=== PATIENT | female | born 1940 | race Caucasian/White ===

== ENCOUNTER 2017-10-09 09:46 | Inpatient (IN) | payer OTHER, MEDICARE ==
[~2017-10-09 09:46] MED LIST: NS 1,000 ML IV ONE
--- NOTE | 2017-10-09 09:46 | EDPHY ---
HPI/HX/ROS/PE/MDM Narrative: CHIEF COMPLAINT: Stroke Alert HPI: This is a 77 y/o female currently undergoing treatment for multiple myeloma who arrives emergently via EMS as a Stroke Alert with acute onset left- sided weakness at 09:00 this morning, 40 minutes prior to arrival. Per EMS, she felt normal upon waking this morning then suddenly developed complete weakness in her left arm and left leg. On EMS arrival she was unable to stand or walk and could not lift her left arm. Symptoms began to improve en route and upon arrival here she feels she is back to normal. Prehospital BGL 146. No anticoagulant use. REVIEW OF SYSTEMS: Aside from elements discussed in the HPI, a comprehensive 10-point review of systems was reviewed and is negative. PMH: Multiple myeloma on chemotherapy SOCIAL HISTORY: Visiting from [place]. Family at bedside. PHYSICAL EXAM: General:Patient is alert, in no acute distress. ENT:Eyes are normal to inspection. ENT inspection normal apart from left lateral tongue abrasion, non-suturable. Neck: Normal inspection. Full range of motion. Respiratory:No respiratory distress. Breath sounds normal bilaterally. Cardiovascular: Regular rate and rhythm. Strong peripheral pulses. Normal cap refill. Abdomen:The abdomen is nontender to palpation. There are no peritoneal signs. Back: Normal to inspection. No tenderness to palpation. Skin: Normal color. No rash. Warm and dry. Extremities: Trace edema, otherwise normal appearance. Full range of motion. Neuro: Oriented x3. Normal motor function. Normal sensory function. ED Course: 40: This is a 77 y/o female with multiple myeloma who presents as a Stroke Alert with a 40-minute history of acute onset left arm and left leg weakness that began at 09:00 this morning. Symptoms have improved en route and upon initial brief assessment here she has no persisting major weakness. She is A& Ox4 and has no aphasia currently. Plan for stroke work up. 940: Patient sent directly to CT. Non-contrast head CT, ISTAT, and EKG ordered. Angio head and neck CTAs ordered. Report from RN who has spoken with patient's family is that the patient may have had a seizure this morning. Family described shaking activity and the patient has been complaining of tongue pain where she believes she bit her tongue during the event this morning. 1023: CT reports communicated to me by Dr. Abdi, radiologist. 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 The 12 lead EKG was interpreted by myself. See hard copy and/or "tracemaster" electronic copy for interpretation. 1027: Reevaluated patient and discussed findings. Her family members are now at bedside. She is complaining of tongue pain and denies any other symptoms. Her family member describes her suddenly "shaking all over" with her "eyes fluttering backwards" while sitting in a chair this morning. She says she remembers the entire event and felt like she couldn't talk or breathe normally for the duration. She denies cardiac disease history or blood clot history, though her family member mentions she's had increased leg swelling for several weeks worse on the left side. Per patient, her multiple myeloma was discovered due to lesions on her skull in 2009. She had a brain MRI at that time at [facility] in [place], [place] that we will attempt to get records from. Her neuro exam is normal. Trace swelling noted in both lower extremity. No birthmarks. Bilateral leg US ordered to rule out DVT. POC Troponin is elevated at 0.72. 1125: Leg US are negative for DVT. Spoke with hospitalist service. Dr. June accepts admission. - Data Points Imaging Results: Imaging Impressions Head CT 10/09/17 09:44 Impression: 1. Chronic changes to the right frontal region with calcification as above described. 2. No acute intracranial hemorrhage or mass or evidence for stroke. Findings and recommendations discussed with Dominic Phillips M.D. at 10:15 a.m. on 10/09/2017. Final report concurs with initial preliminary interpretation. 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 Does this patient have a port wine stain? With calcifications, differential includes Sturge-Carbajal syndrome or vascular malformation not associated with a syndrome. Findings and recommendations discussed with Dominic Phillips M.D. at 10:15 a.m. on 10/09/2017. Final report concurs with initial preliminary interpretation. Neck CTA 10/09/17 09:44 Impression: Normal. Note: All stenoses are calculated using NASCET Criteria. Findings and recommendations discussed with Dominic Phillips MD at 10:15 AM hour, 10/09/2017. Final report concurs with initial preliminary interpretation. Extremity Venous Study 10/09/17 10:32 Impression: Limited evaluation of the peroneal vein. Otherwise, no bilateral LE DVT. Findings and recommendations discussed with Dominic Phillips MD at 1125 hour, 10/09/2017. Imaging: Discussed imaging studies w/ scallop shucker Radiologist, I viewed and interpreted images myself Laboratory Results: Laboratory Results 10/09/17 10:00 10/09/17 10:00 10/09/17 10/09/17 10/09/17 10:44 10:00 10:00 WBC 6.10 10^3/uL 10^3/uL (3.80-9.50) RBC 4.52 10^6/uL 10^6/uL (4.18-5.33) Hgb 14.8 g/dL g/dL (12.6-16.3) Hct 44.6 % % (38.0-47.0) MCV 98.7 fL fL (81.5-99.8) MCH 32.7 pg pg (27.9-34.1) MCHC 33.2 g/dL g/dL (32.4-36.7) RDW 12.6 % % (11.5-15.2) Plt Count 258 10^3/uL 10^3/uL (150-400) MPV 10.9 fL fL (8.7-11.7) Neut % (Auto) 40.0 % % (39.3-74.2) Lymph % (Auto) 46.1 % H % (15.0-45.0) [place] % (Auto) 12.0 % % (4.5-13.0) Eos % (Auto) 1.3 % % (0.6-7.6) Baso % (Auto) 0.3 % % (0.3-1.7) Nucleat RBC Rel Count 0.0 % % (0.0-0.2) Absolute Neuts (auto) 2.44 10^3/uL 10^3/uL (1.70-6.50) Absolute Lymphs (auto) 2.81 10^3/uL 10^3/uL (1.00-3.00) Absolute Monos (auto) 0.73 10^3/uL 10^3/uL (0.30-0.80) Absolute Eos (auto) 0.08 10^3/uL 10^3/uL (0.03-0.40) Absolute Basos (auto) 0.02 10^3/uL 10^3/uL (0.02-0.10) Absolute Nucleated RBC 0.00 10^3/uL 10^3/uL (0-0.01) Immature Gran % 0.3 % % (0.0-1.1) Immature Gran # 0.02 10^3/uL 10^3/uL (0.00-0.10) PT INR APTT D-Dimer Sodium 140 mEq/L mEq/L (135-145) Potassium 3.7 mEq/L mEq/L (3.3-5.0) Chloride 107 mEq/L mEq/L (97-110) Carbon Dioxide 17 mEq/l L mEq/l (22-31) Anion Gap 16 mEq/L mEq/L (8-16) BUN 17 mg/dL mg/dL (7-23) Creatinine 0.8 mg/dL mg/dL (0.6-1.0) POC Creatinine Estimated GFR > 60 Glucose 132 mg/dL H mg/dL (70-100) Calcium 9.0 mg/dL mg/dL (8.5-10.4) POC Troponin I 0.72 ng/mL H ng/mL (0.00-0.08) Troponin I < 0.012 ng/mL ng/mL (0.000-0.034) NT-Pro-B Natriuret Pep 180 pg/mL pg/mL (0-450) 10/09/17 10/09/17 10/09/17 10:00 10:00 09:54 WBC RBC Hgb Hct MCV MCH MCHC RDW Plt Count MPV Neut % (Auto) Lymph % (Auto) [place] % (Auto) Eos % (Auto) Baso % (Auto) Nucleat RBC Rel Count Absolute Neuts (auto) Absolute Lymphs (auto) Absolute Monos (auto) Absolute Eos (auto) Absolute Basos (auto) Absolute Nucleated RBC Immature Gran % Immature Gran # PT 13.2 SEC SEC (12.0-15.0) INR 0.98 (0.83-1.16) APTT 21.8 SEC L SEC (23.0-38.0) D-Dimer Cancelled 0.74 ug/mLFEU H ug/mLFEU (0.00-0.50) Sodium Potassium Chloride Carbon Dioxide Anion Gap BUN Creatinine POC Creatinine 0.8 mg/dL mg/dL (0.6-1.0) Estimated GFR Glucose Calcium POC Troponin I Troponin I NT-Pro-B Natriuret Pep Medications Given: Discontinued Medications Sodium Chloride (Ns) 1,000 mls @ 0 mls/hr IV EDNOW ONE; Wide Open PRN Reason: Protocol Stop: 10/09/17 09:46 Last Admin: 10/09/17 10:36 Dose: 1,000 mls Point of Care Test Results: Chemistry 10/09/17 10/09/17 10:44 09:54 POC Creatinine 0.8 mg/dL mg/dL (0.6-1.0) POC Troponin I 0.72 ng/mL H ng/mL (0.00-0.08) General Time Seen by Provider: 10/09/17 09:40 Initial Vital Signs: Initial Vital Signs Temperature (C) 36.9 C 10/09/17 09:46 Heart Rate 108 H 10/09/17 09:46 Respiratory Rate 19 10/09/17 09:46 Blood Pressure 157/84 H 10/09/17 09:46 O2 Sat (%) 99 10/09/17 09:46 O2 Delivery Mode Room Air Allergies/Adverse Reactions: No Known Allergies Allergy (Verified 10/09/17 10:17) Home Medications: Medication Instructions Recorded Alpha Crs + 2 each PO BID 10/09/17 Daratumumab [Darzalex] 0 mg IV Q14D 10/09/17 Dexamethasone [Decadron 4 MG (*)] 20 - 40 mg PO AD 10/09/17 Dicyclomine [Bentyl 10 MG (*)] 10 mg PO DAILY PRN 10/09/17 Dpr Prime 1 each PO DAILY 10/09/17 Microplex Vmz 2 each PO BID 10/09/17 Nervestra 3 each PO BID 10/09/17 Timolol 0.5% [TIMOPTIC 0.5% (*)] 1 drops LEFTEYE BID 10/09/17 Xeo Sam 2 each PO BID 10/09/17 Departure - Departure Disposition: [facility] Acute Clinical Impression: Seizure, Elevated troponin Condition: Fair Report Scribed for: Dominic Phillips Report Scribed by: Rachel Campbell Date of Report: 10/09/17 Time of Report: 09:42 Physician Review and Approval Statement: Portions of this note were transcribed by an ED scribe. I personally performed the history, physical exam, and medical decision making; and confirm the accuracy of the information in the transcribed note.
[2017-10-09] MEDS ORDERED: IOPAMIDOL (ISOVUE 370) 100 ML BTL IV ONE (09:55)
--- NOTE | 2017-10-09 10:14 | CPEKG ---
Heart Rate: 90 RR Interval: 667 P-R Interval: 160 QRSD Interval: 86 QT Interval: 380 QTC Interval: 465 P [place]: 2 QRS [place]: 14 T Wave [place]: 29 EKG Severity - NORMAL ECG - EKG Impression: SINUS RHYTHM Electronically Signed By: Jordon Luz 11-Oct-2017 09:07:29
[2017-10-09 10:35] LABS: INR 0.98 (0.83-1.16); PROTIME(PATIENT) 13.2 SEC (12.0-15.0)
[2017-10-09 11:07] LABS: PLATELET COUNT 258 10^3/uL (150-400)
[2017-10-09] MEDS ORDERED: ONDANSETRON DISINTEGRATING 4 MG TAB PO PRN (13:21)
[2017-10-09] MEDS ORDERED: ONDANSETRON 4 MG/2 ML VIAL IVP PRN (13:21)
[2017-10-09] MEDS ORDERED: ACETAMINOPHEN 325 MG TAB PO PRN (13:21)
[2017-10-09] MEDS ORDERED: PROMETHAZINE HCL 25 MG/ML INJ IVP PRN (13:21)
[2017-10-09] MEDS ORDERED: oxyCODONE IR 5 MG TAB PO PRN (13:21)
[2017-10-09] MEDS ORDERED: LORazepam 2 MG/ML INJ IVP PRN (13:24)
[2017-10-09] MEDS ORDERED: DICYCLOMINE 10 MG CAP PO PRN (13:25)
--- NOTE | 2017-10-09 14:29 | ASMTCMCOM ---
CM Note CM Note Notes: Pt is visiting from [place], came in as stroke alert. Stroke workup pending. Pt undergoing chemo treatment for multiple myeloma. OT/PT evals pending. CM to follow for d/c needs. Date Signed: 10/09/2017 02:28 PM Electronically Signed By:ZOFIA Heredia
[2017-10-09] MEDS ORDERED: PERFLUTREN LIPID MICROSPHERES 1.1 MG/ML VIAL IV ONE (14:44)
--- NOTE | 2017-10-09 14:59 | PDGENHP ---
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 Patient and her were in their trailer which is currently parked in their son's driveway when she abruptly raised her arm in the air, had her eyes roll back in her head and began to shake all over with her eyes rolling back in her head and biting her tongue. She was brought in initially as a stroke alert but when further history was obtained it sounded as if the weakness began after the seizure like activity and resolved since then. At the time of my evaluation she feels essentially completely back to normal. She has never had a seizure before. She had a head CTA that showed an AVM, and in discussion with patient she states she has had a brain MRI in the past but does not remember there being mention of an abnormality like that on it. She denies chest pain now or earlier, she denies pain in her legs though she does think they are both swollen. She did spend 2 days in the car driving to [place] recently. History Information - Allergies/Home Medication List Allergies/Adverse Reactions: No Known Allergies Allergy (Verified 10/09/17 10:17) Home Medications: Alpha Crs + 2 each PO BID 10/09/17 [Last Taken 10/08/17 21:00] Daratumumab [Darzalex] 0 mg IV Q14D 10/09/17 [Last Taken 10 Days Ago ~09/29/17] Dexamethasone [Decadron 4 MG (*)] 20 - 40 mg PO AD 10/09/17 [Last Taken 11 Days Ago ~09/28/17] Dicyclomine [Bentyl 10 MG (*)] 10 mg PO DAILY PRN 10/09/17 [Last Taken Unknown] Dpr Prime 1 each PO DAILY 10/09/17 [Last Taken 10/08/17] Microplex Vmz 2 each PO BID 10/09/17 [Last Taken 10/08/17 21:00] Nervestra 3 each PO BID 10/09/17 [Last Taken 10/08/17 21:00] Timolol 0.5% [TIMOPTIC 0.5% (*)] 1 drops LEFTEYE BID 10/09/17 [Last Taken ] Xeo Sam 2 each PO BID 10/09/17 [Last Taken 10/08/17 21:00] I have personally reviewed and updated: family history, medical history, social history, surgical history - Past Medical History cancer (multiple myeloma) Additional medical history: peripheral neuropathy - Surgical History Reports: no pertinent surgical hx - Family History Positive for: non-pertinent - Social History Smoking Status: Never smoked Alcohol Use: Rarely Drug Use: None Additional social history: , visiting [place] for the summer Review of Systems Review of Systems: ROS: 10pt was reviewed & negative except for what was stated in HPI & below Physical Exam Physical Exam: Temp Pulse Resp BP Pulse Ox 36.7 C 77 15 163/84 H 94 10/09/17 12:30 10/09/17 12:30 10/09/17 12:30 10/09/17 12:30 10/09/17 12:30 Constitutional: no apparent distress, appears nourished Eyes: PERRL Ears, Nose, Mouth, Throat: moist mucous membranes, other (dried blood around mouth, bite dann on tongue) Cardiovascular: regular rate and rhythym, no murmur, rub, or gallop, edema Respiratory: no respiratory distress, no rales or rhonchi Gastrointestinal: normoactive bowel sounds, soft, non-tender abdomen Genitourinary: no bladder tenderness Skin: warm, normal color Musculoskeletal: full muscle strength Neurologic: AAOx3, CN II-XII Intact Psychiatric: interacting appropriately, not anxious, not encephalopathic Lab Data & Imaging Review 10/09/17 10:00 10/09/17 10:00 WBC 6.10 10^3/uL (3.80-9.50) 10/09/17 10:00 RBC 4.52 10^6/uL (4.18-5.33) 10/09/17 10:00 Hgb 14.8 g/dL (12.6-16.3) 10/09/17 10:00 Hct 44.6 % (38.0-47.0) 10/09/17 10:00 MCV 98.7 fL (81.5-99.8) 10/09/17 10:00 MCH 32.7 pg (27.9-34.1) 10/09/17 10:00 MCHC 33.2 g/dL (32.4-36.7) 10/09/17 10:00 RDW 12.6 % (11.5-15.2) 10/09/17 10:00 Plt Count 258 10^3/uL (150-400) 10/09/17 10:00 MPV 10.9 fL (8.7-11.7) 10/09/17 10:00 Neut % (Auto) 40.0 % (39.3-74.2) 10/09/17 10:00 Lymph % (Auto) 46.1 % (15.0-45.0) H 10/09/17 10:00 [place] % (Auto) 12.0 % (4.5-13.0) 10/09/17 10:00 Eos % (Auto) 1.3 % (0.6-7.6) 10/09/17 10:00 Baso % (Auto) 0.3 % (0.3-1.7) 10/09/17 10:00 Nucleat RBC Rel Count 0.0 % (0.0-0.2) 10/09/17 10:00 Absolute Neuts (auto) 2.44 10^3/uL (1.70-6.50) 10/09/17 10:00 Absolute Lymphs (auto) 2.81 10^3/uL (1.00-3.00) 10/09/17 10:00 Absolute Monos (auto) 0.73 10^3/uL (0.30-0.80) 10/09/17 10:00 Absolute Eos (auto) 0.08 10^3/uL (0.03-0.40) 10/09/17 10:00 Absolute Basos (auto) 0.02 10^3/uL (0.02-0.10) 10/09/17 10:00 Absolute Nucleated RBC 0.00 10^3/uL (0-0.01) 10/09/17 10:00 Immature Gran % 0.3 % (0.0-1.1) 10/09/17 10:00 Immature Gran # 0.02 10^3/uL (0.00-0.10) 10/09/17 10:00 PT 13.2 SEC (12.0-15.0) 10/09/17 10:00 INR 0.98 (0.83-1.16) 10/09/17 10:00 APTT 21.8 SEC (23.0-38.0) L 10/09/17 10:00 D-Dimer 0.74 ug/mLFEU (0.00-0.50) H 10/09/17 10:00 Sodium 140 mEq/L (135-145) 10/09/17 10:00 Potassium 3.7 mEq/L (3.3-5.0) 10/09/17 10:00 Chloride 107 mEq/L (97-110) 10/09/17 10:00 Carbon Dioxide 17 mEq/l (22-31) L 10/09/17 10:00 Anion Gap 16 mEq/L (8-16) 10/09/17 10:00 BUN 17 mg/dL (7-23) 10/09/17 10:00 Creatinine 0.8 mg/dL (0.6-1.0) 10/09/17 10:00 POC Creatinine 0.8 mg/dL (0.6-1.0) 10/09/17 09:54 Estimated GFR > 60 10/09/17 10:00 Glucose 132 mg/dL (70-100) H 10/09/17 10:00 Calcium 9.0 mg/dL (8.5-10.4) 10/09/17 10:00 POC Troponin I 0.72 ng/mL (0.00-0.08) H 10/09/17 10:44 Troponin I < 0.012 ng/mL (0.000-0.034) 10/09/17 10:00 NT-Pro-B Natriuret Pep 180 pg/mL (0-450) 10/09/17 10:00 Visualized and Interpreted Chest x-ray results: Yes Chest X-Ray results: no infiltrate Visualized and Interpreted imaging results: Yes Interpretation: right frontal vascular AVM Visualized and Interpreted EKG results: Yes EKG Interpretation: Positive for: normal sinsus rhythm Assessment & Plan Assessment: Seizure (Acute) Elevated troponin (Acute) 77 yo F with PMH of multiple myeloma presenting with seizure and found to have frontal AVM on imaging # seizure: with seizure focus noted on imaging, frontal AVM. On head CT there are calcifications noted but no e/o bleed. Appreciate neurosurgery input, at this time it is likely that patient will not require surgical intervention. Will begin keppra 750mg bid, monitor on seizure precautions. 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 # elevated troponin: without chest pain and in the setting of seizure, but a bit more elevated than would expect if purely related to seizure. Will monitor on telemetry, obtain serial trops and echocardiogram to eval for any sort of wall motion abnormality. Consider cardiology consult if trop continues to rise or echo abnormal, ecg without e/o ischemia # AVM: as per problem number 1 # multiple myeloma: patient is not sure what treatment she has been on, have tried to reach her oncologist Dr. Frank, [phone] for records to be sent # peripheral neuropathy: due to side effects of MM treatment # observation status Patient new to my care. Care plan reviewed with ER doctor and Neurosurgery, further hx obtained from and children of patient present at bedside.
--- NOTE | 2017-10-09 15:48 | ECHO ---
[email or web address] [id number] Main: [phone] Fax: Transthoracic Echocardiogram Name: ASHLEY BURTON MR#: [id number] Study Date: 10/09/2017 Study Time: 02:23 PM Date of : 1940 Age: 77 year(s) Height: 160 cm (63 in.) Weight: 68.04 kg (150 lb.) BSA: 1.71 m2 Gender: Female Examination: Echo Indication: ELEVATED TROPONIN Image Quality: Adequate Contrast: Requested by: Zhang June BP: 163 mmHg/84 mmHg Heart Rate: Rhythm: Indication: ELEVATED TROPONIN Procedure Staff Thread Singer: Glory Blackmon [facility] Reading Physician: Eddie Torres MD Requesting Provider: Conclusions: Normal size left ventricle. Borderline concentric LV hypertrophy. Normal global systolic LV function. Regional wall motion abnormality noted. Unable to assess diastolic dysfunction. There appears to be anterior and apical anterior hypokinesis. Normal size right ventricle. Normal RV function. The left atirum is borderline dilated. The right atrium is normal in size. Mitral Valve: The mitral valve is normal in appearance and function. Mild to moderate mitral regurgitation. No mitral stenosis is present. The aortic valve is tri-leaflet. Trivial aortic valve regurgitation. No aortic valve stenosis is present. The tricuspid valve is normal in appearance and function. Mild to moderate tricuspid valve regurgitation. The pulmonary artery pressure is mildly increased. Right ventricular systolic pressure measures 42mmHg. The pulmonic valve is normal in appearance and function. There is no pulmonic regurgitation seen. The aorta is normal. Normal size aortic root measuring 2.3 cm. Normal size ascending aorta measuring 2.9 cm. The IVC is normal sized. No pericardial effusion. No pleural effusion. Patient: ASHLEY BURTON Study Date: 10/09/2017 Page 1 of 3 02:23 PM Measurements: Chambers Valvular Assessment AV/MV Valvular Assessment TV/PV Normal Normal Normal Name Value Range Name Value Range Name Value Range Ao Susanne (2D): 2.3 cm (1.4 cm-2.6 AV Vmax: 1.47 m/s (1 m/s-1.7 TR Vmax: 3.05 mm/s ( - ) cm) m/s) TR PGmax: 37 mmHg ( - ) IVSd (2D): 1.2 cm (0.6 cm-1.1 AV maxP mmHg ( - ) syst. PAP: 42 mmHg ( - ) cm) AV meanP mmHg ( - ) PV Vmax: 1.11 m/s (0.6 m/s-0.9 LVDd (2D): 4.2 cm (3.9 cm-5.3 ELIZABETH (VTI): 2.3 cm ( - ) m/s) cm) MV E Vmax: 0.88 m/s ( - ) PV PGmax: 5 mmHg ( - ) LVDs (2D): 2.8 cm (2.1 cm-4 MV A Vmax: 1.17 m/s ( - ) cm) MV E/A: 0.75 ( - ) LVPWd (2D): 1.2 cm ( - ) MV PHT: 0.066 s ( - ) LVOTd 2.0 cm 2.0 cm mm MVA (PHT): 3.3 s ( - ) RVDd(2D): 3.4 cm (1.9 cm-3.8 cmmm) Continued Measurements: Chambers Valvular Assessment AV/MV Valvular Assessment TV/PV Name Value Name Value Name Value LADs: 3.7 cm MV DecTime: 218 m/s CVP (est.): 5 mmHg LADs Lon.0 cm MV E' Septal: 0.07 m/s LA Area: 18.1 cm2 MV E/E' Septal: 12.90 LA Volume: 54 ml MV E/E' Lateral: 12.00 LA Volume Index: 31.6 ml/m2 RA Area: 18.1 cm2 Additional Vessels Name Value Ao Ascendin.9 cm Findings: Left Ventricle: Normal size left ventricle. Borderline concentric LV hypertrophy. Normal global systolic LV function. Regional wall motion abnormality noted. Unable to assess diastolic dysfunction. There appears to be anterior and apical anterior hypokinesis. Right Ventricle: Normal size right ventricle. Normal RV function. Left Atrium: The left atirum is borderline dilated. Right Atrium: The right atrium is normal in size. Mitral Valve: The mitral valve is normal in appearance and function. Mild to moderate mitral regurgitation. No mitral stenosis is present. Aortic Valve: The aortic valve is tri-leaflet. Trivial aortic valve regurgitation. No aortic valve stenosis is present. Tricuspid Valve: The tricuspid valve is normal in appearance and function. Mild to moderate tricuspid valve regurgitation. The pulmonary artery pressure is mildly increased. Right ventricular systolic pressure measures 42mmHg. Pulmonic Valve: The pulmonic valve is normal in appearance and function. There is no pulmonic regurgitation seen. Aorta: The aorta is normal. Normal size aortic root measuring 2.3 cm. Normal size ascending aorta measuring 2.9 cm. IVC: The IVC is normal sized. Patient: ASHLEY BURTON Study Date: 10/09/2017 Page 2 of 3 02:23 PM Pericardium: No pericardial effusion. No pleural effusion. (No Signature Object) Patient: ASHLEY BURTON Study Date: 10/09/2017 Page 3 of 3 02:23 PM [id number]
--- NOTE | 2017-10-09 16:25 | GCON ---
[f rep st] CONSULTATION NEUROSURGERY CONSULTATION CHIEF COMPLAINT: Status post seizure and abnormal CT head findings. HISTORY OF PRESENT ILLNESS: The patient is a 77-year-old female patient who is here visiting her son from [place]. She and her are here, and they are staying with their son, staying in a camper in his driveway. Per report, the patient was having breakfast this morning with her and had an apparent seizure. She abruptly raised her arm in the air, and her eyes rolled back in her head, and she was shaking all over. She was brought in to [facility] as a stroke alert. She had some weakness after the seizure, and this has since improved. The patient states she has never had a seizure or any other episode similar to this in the past. She has a history of multiple myeloma and reports that she had an MRI of the brain about 10 years ago and does not recall it showing any abnormal findings with the exception of discovering the multiple myeloma in her skull. She underwent imaging here at [facility] with a CTA that demonstrated an AVM, and the neurosurgery service was subsequently consulted for definitive management. The patient was given a dose of Keppra while in the ER today. On examination, the patient is resting in bed. Her is at the bedside. She denies any headache, nausea, vomiting, or weakness. She does have baseline neuropathy from her chemotherapy in her hands and feet. She otherwise denies any numbness or tingling. ALLERGIES: The patient has no known drug allergies. HOME MEDICATIONS: Please see the medication reconciliation. PAST MEDICAL HISTORY: Significant for multiple myeloma and peripheral neuropathy. PAST SURGICAL HISTORY: The patient has had right total knee replacement and also a hysterectomy. SOCIAL HISTORY: The patient is a nonsmoker. She drinks wine occasionally. No drug use. She is and is here with her . FAMILY HISTORY: Patient has a son who is living. REVIEW OF SYSTEMS: Please see above mentioned in the HPI. PHYSICAL EXAMINATION: VITAL SIGNS: Blood pressure 163/84, heart rate 77, respirations 15. O2 saturation is 94% on room air. Temperature is 36.7 Celsius. GENERAL: This is a well-developed, well-nourished female patient in no acute distress. HEENT: Head: Normocephalic and atraumatic. Cranial nerves 2-12 are grossly intact. Eyes: PERRL. Her extraocular movements are intact. Her sclerae are anicteric. She has intact sensation over her face. Her facial movements are symmetric. There is no facial droop noted. Her tongue protrudes midline. Her palate and uvula elevate symmetrically. She has intact hearing to light finger scratch bilaterally. She has a symmetric shoulder shrug bilaterally. Motor examination of bilateral upper extremities is 5/5 for deltoid, triceps, biceps, and hand [employer] and also 5/5 for bilateral lower extremities, including hip flexion, flexion, extension of the knee and plantar dorsiflexion. She has negative Aldo sign. She has 2+ bilateral patellar reflexes. She has intact sensation throughout the normal dermatomal distribution of her body, with the exception of some numbness in her hands and feet. LABORATORY DATA: White blood cells 6.10, red blood cells 4.52, hemoglobin 14.8 , hematocrit 44.6. RDW is 12.6, platelet count 258. PT is 13.2, INR 0.98. PTT is 29.8. D-dimer is 0.74. Sodium is 140, potassium 3.7, chloride 107, carbon dioxide 17, anion gap 16, BUN 17, creatinine 0.8, GFR greater than 60, glucose 132. Hemoglobin A1c 4.9, calcium 9.0. Troponin 0.72. Troponin 1 less than 0.012. BNP 180. IMAGING: CT head without contrast: Chronic changes to the right frontal region with calcification as above described. No acute intracranial hemorrhage or mass or evidence for stroke. 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 Does this patient have port wine stain? With calcifications. Differential includes a Sturge-Carbajal syndrome or vascular malformation not associated with a syndrome. Neck CTA normal. EKG: Normal sinus rhythm. Ultrasound of the lower extremity, limited evaluation of the peroneal vein. Otherwise, no bilateral lower extremity DVT. Echocardiogram: There is aortic valve regurgitation. No aortic valve stenosis. Pulmonary artery pressure mildly increased. No pulmonic regurgitation. Aorta is normal. IVC is normal size. No pericardial effusion. No pleural effusion. IMPRESSION: This is a 77-year-old female patient status post seizure with an arteriovenous malformation seen on CTA of the head. PLAN: At this time, the patient was admitted to the medicine service. The patient is currently neurologically intact. She should continue on Keppra 750 mg twice a day, and she should avoid driving. We have discussed the patient with Dr. Miguel, who is our vascular specialist, and he would like the patient to undergo an MRI of the brain with and without contrast. Once the patient is cleared from the medicine team, should be fine for discharge from a neurosurgical perspective. We would have her follow up in the office with Dr. Miguel to discuss possible further management for this AVM. In the meantime, she should continue taking the Keppra until she is seen in the office for followup. Neurosurgery will continue to follow along with this patient. I have also ordered an MRI of the brain with and without contrast. Please contact our office with any additional questions or concerns, or any changes in the patient's neurologic status. The patient was seen by both Dr. Gooden and myself. We have discussed the plan with Dr. June, the hospitalist. Thank you for this consultation. /[id number]/MODL MTDD
[2017-10-09] MEDS ORDERED: GADOBUTROL 10 ML VIAL IVP ONE (16:27)
--- NOTE | 2017-10-09 19:31 | GCON ---
[f rep st] CONSULTATION DATE OF CONSULTATION: 10/09/2017 REASON FOR CONSULTATION: Abnormal echocardiogram and elevated troponin. CONSULTING PHYSICIAN: Dr. Shanique June MD. HISTORY OF PRESENT ILLNESS: Mrs. King is a pleasant 77-year-old female with a past medical his tory of multiple myeloma who is currently on chemotherapy regimen and a history of peripheral neuropa thy secondary to complications from chemotherapy, who recently traveled from their home near [place], [place], in their camper to come to [place] to visit their children. Mrs. King states that for the previous days prior to her arrival in [place], she had been feeling more fatigued than usual, bu t denied any complaints of chest pain, chest pressure or shortness or dyspnea. She has no known hist ory of heart disease. Their home in [place] is at [place] [place], and she is typically accu stomed to the altitude. She was in her usual state of health until this morning when while having breakfast in her camper wit h her , she is had an acute onset of raising her left arm in the air. She began to shake. He r eyes rolled in the back of her head. She bit her tongue and collapsed. She denies any prodrome as sociated with this event. She has had episodes of syncope in the past and she states this felt marke dly different due to the absence of prodrome. She denies any complaints of palpitations, chest pain or shortness of breath prior to the onset of the symptoms. Her ran from the camper asking fo r help and to call 911. He then returned to be with his and states that within 5-10 minutes, sh e began to return to baseline. Ms Sommer has very little memory of the events after losing control. It was unclear whether she truly lost consciousness. Upon arrival at [facility], Stroke Alert had initially been called and symptoms seem more like seizure activity than stroke. She did undergo a CTA that showed an arteriovenous malformat ion and she ultimately underwent an MRI of the brain that was just completed this evening demonstrati ng a right frontal lobe arteriovenous malformation with associated atrophy and hemosiderin from previ ous hemorrhages. There is no evidence of acute hemorrhage, hydrocephalus or midline shift or herniat ion. Her ECG on presentation demonstrated normal sinus rhythm at 90 beats per minute with normal intervals and normal axis and no ischemic changes. QT interval corrected with Bazett formula 465 milliseconds . Initial troponin was 0. She ultimately underwent an echocardiogram demonstrating anterior and apical hypokinesis with preserv ed left ventricular function. As a result of the echo findings, cardiology consult was obtained. Re peat troponin was abnormal with followup value of 2.320 obtained at 4:00 PM. At the time of my exam, she is resting comfortably. She denies any cardiac complaints. She describe s feeling "normal." She denies any history of coronary artery disease, hypertension, hyperlipidemia or diabetes. She is a lifelong nonsmoker. Prior to this event, she has had no complaints of exertional chest pain, short ness of breath. She has felt more fatigued over the last several days. PAST MEDICAL HISTORY: 1. Multiple myeloma. 2. Peripheral neuropathy. MEDICATIONS ON ADMISSION: 1. Dexamethasone 20-40 mg p.o. daily. 2. Darzalex IV every 14 days. 3. Bentyl 10 mg p.o. daily p.r.n. 4. Timolol eye drops in left eye b.i.d. 5. XEO Sam 2 tablets b.i.d. 6. Microplex VMz 2 each b.i.d. 7. Nervestra 3 p.o. b.i.d. 8. DPR Prime 1 each daily. 9. Alpha CRS 2 each p.o. b.i.d. ALLERGIES: NONE. SOCIAL: She lives with her . They primarily live outside of [place], [place]. They are [facility] to visit family. She is a lifelong nonsmoker. Rarely drinks alcohol. 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 FAMILY HISTORY: She is was an only child. She has no family history of premature coronary artery di sease. PHYSICAL EXAMINATION: VITAL SIGNS: Blood pressure 158/74, heart rate of 90 in sinus rhythm. Oxygen saturation 96% on room air. Temperature 36.8. GENERAL: She is awake, alert, oriented, appropriate . No apparent distress. NECK: There is no evidence of JVP or carotid bruits. LUNGS: Clear to ausc ultation bilaterally. CARDIAC: S1, S2. Regular rate and rhythm. No murmurs, rubs, or gallops. AB DOMEN: Soft, nontender, nondistended. There is no pulsatile mass or abdominal bruit. EXTREMITIES: No cyanosis, clubbing or edema. Peripheral pulses are intact. DATA: White blood cell count 6.1, hemoglobin 14.8, hematocrit 44.6, platelet count 258. Sodium 140, potassium 3.7, chloride 107, bicarb 17, BUN 17, creatinine 0.8, glucose 132, hemoglobin A1c 4.9. In itial troponin in the ER was elevated at 0.72. Serum troponin of less than 0.012. Repeat troponin a t 4:00 PM 2.32. N-terminal proBNP normal at 180. ECG sinus rhythm with normal intervals and normal axis. Complete 2D echocardiogram: Preserved left ventricular function with apical anterior septal hypokine sis. No significant valvular disease. No effusion. MRI of the brain confirms arteriovenous malformation as stated above in HPI. Telemetry demonstrates normal sinus rhythm with occasional isolated PVCs. IMPRESSION: Mrs. King is a pleasant 77-year-old female with history of multiple myeloma, curre ntly on chemotherapy with course complicated by peripheral neuropathy, who had an event earlier today consistent with seizure-like activity. Arteriovenous malformation has been identified. No evidence of acute hemorrhage, midline shift. Workup also demonstrates a rising troponin initially to less than 0.012, rising to 2.32 on repeat milvia ue with normal ECG and evidence of anterior apical and anterior septal wall hypokinesis. She is asymptomatic at this time. However, I would recommend trending serial troponins through the c ourse of the evening. Would consider diagnostic left heart catheterization in the morning. Concerne d that her event may have been related to possible arrhythmia and underlying coronary disease creatin g the events of earlier today. PLAN: 1. Add low-dose metoprolol. 2. N.p.o. after midnight. 3. Consider left heart catheterization in the morning pending the results of further troponin evalua tions. 4. In the setting of AVM with hemosiderin changes secondary to previous hemorrhages, will not add as pirin at this time. 5. Fasting lipid profile in the morning. 6. I have answered all of the patient's as well as patient's family's questions at this time. 7. Also would recommend transfer to [address] [place], [place] [address] for closer observation. /[id number]/MODL
[2017-10-09] MEDS ORDERED: LIDOCAINE 2% VISCOUS 15 ML UDCUP PO PRN (20:21)
[2017-10-09] MEDS: TIMOLOL 0.5% 15 ML OPHT.BTL LEFTEYE SCH (20:54)
[2017-10-09] MEDS: METOPROLOL TARTRATE 25 MG TAB PO SCH (21:01)
[2017-10-09] MEDS: levETIRAcetam 250 MG TAB PO SCH (21:01)
--- NOTE | 2017-10-10 07:22 | NEUSURGPN ---
Assessment/Plan: A: 77 yo F admitted after likely seizure with AVM seen on CTA and evidence of hemosiderin deposition on MRI brain w/o acute hemorrhage P: Transferred to tele floor, cardio on board - cath today Continue Keppra 750mg BID No driving given recent seizure Neuro intact MRI brain w/o acute hemorrhage. Hemosiderin deposition seen at AVM site Follow up with Dr Miguel in 2 weeks NS will sign off and follow peripherally D/w Dr Blanchard Call NS with any issues/questions/neuro changes Subjective: Pt resting in bed, feeling good. Denies any headaches or pain. Objective: AAOx3 NAD VSS MAEx4 Pupils equal CN II-XII grossly intact Motor 5/5 BUE/BLE +LT Urinary Catheter in Place: No - Physician Discussed Patient with : [facility] Physical Exam - Vitals, I&O, Labs I and O 10/09/17 10/10/17 10/11/17 05:59 05:59 05:59 Intake Total 1400 Output Total 726 Balance 674 Weight 68.039 kg Intake: Oral (ml) 400 IV Infused (ml) 1000 Output: Urine (ml) 726 Toilet 726 Other: Intake Quantity Yes Sufficient Number of Voids 1 Toilet 1 Vital Signs Temp Pulse Resp BP Pulse Ox 36.9 C 79 16 142/64 H 97 10/10/17 03:44 10/10/17 03:44 10/10/17 03:44 10/10/17 03:44 10/10/17 03:44 Laboratory Results 10/10/17 03:18 ICD10 Worksheet Patient Problems: Problems Problem Status Onset Elevated troponin Acute Seizure Acute
[2017-10-10] MEDS: levETIRAcetam 250 MG TAB PO SCH ×2 (08:21→20:45)
[2017-10-10] MEDS: METOPROLOL TARTRATE 25 MG TAB PO SCH ×2 (08:22→20:44)
[2017-10-10] MEDS: TIMOLOL 0.5% 15 ML OPHT.BTL LEFTEYE SCH ×2 (08:23→20:46)
--- NOTE | 2017-10-10 08:28 | HOSPPROG ---
Hospitalist Progress Note Assessment/Plan: #Seizure: likely from AVM, Keppra #NSTEMI: Lexiscan pending #Multiple myeloma: FU her primary oncologist #Diet: regular #DVT ppx: SCDs #Disp: cont inpatient admission for stress test Subjective: no CP or SOB Objective: Vital Signs Temp Pulse Resp BP Pulse Ox 36.9 C 84 14 122/59 H 92 10/10/17 08:17 10/10/17 08:17 10/10/17 08:17 10/10/17 08:17 10/10/17 08:17 Laboratory Results 10/10/17 03:18 10/09/17 10/10/17 10/11/17 05:59 05:59 05:59 Intake Total 1400 Output Total 726 200 Balance 674 -200 PT 13.2 SEC (12.0-15.0) 10/09/17 10:00 INR 0.98 (0.83-1.16) 10/09/17 10:00 - Time Spent With Patient Time Spent with Patient: greater than 25 minutes Time Spent with Patient: Greater than 25 minutes spent on this patients care, greater than 50% of time spent counseling, educating, and coordinating care regarding the above mentioned plan. - Physical Exam Constitutional: no apparent distress Eyes: PERRL Ears, Nose, Mouth, Throat: moist mucous membranes Cardiovascular: regular rate and rhythym Respiratory: no respiratory distress Gastrointestinal: normoactive bowel sounds Genitourinary: no bladder fullness Skin: warm Musculoskeletal: full muscle strength Neurologic: AAOx3, CN II-XII Intact Psychiatric: interacting appropriately ICD10 Worksheet Patient Problems: Problems Problem Status Onset Elevated troponin Acute Seizure Acute
--- NOTE | 2017-10-10 09:19 | SOAPPROG ---
SOSILVINA Progress Note Assessment/Plan: Assessment:1. abn trops...spiked last night and are decreasing..pt asymptomatic and with normal rhythm..normal ekg ..echo with anterior hypokinesis...will progress to lexiscan and consider cath if abn or if any symptoms arise 2. sz...avm with evidence of old bleed per neurosurgery...no evidenced of arrthymias over night..continue monitoring 3. h/o multiple mylemona..remote chemo and normal renal fxn Plan:1. as above 10/10/17 09:20 Subjective: pt is doing well. had a long talk with pt and family bout her cardiac conditon and options..discussed cath,cta and lexiscan tm ..pt with stable vitals and a decreasing troponin,h/o MM , normal bnp and recent dye load ...she has decided to progress with lexiscan today and if abn we will proceed to cath tommorrow if she remains stable...nsr with...pt out arrhythmias...she dernies any h/o arrthymias or acs Objective: Vital Signs Temp Pulse Resp BP Pulse Ox 36.9 C 84 14 122/59 H 92 10/10/17 08:17 10/10/17 08:17 10/10/17 08:17 10/10/17 08:17 10/10/17 08:17 Laboratory Results 10/10/17 03:18 10/09/17 10/10/17 10/11/17 05:59 05:59 05:59 Intake Total 1400 Output Total 726 200 Balance 674 -200 PT 13.2 SEC (12.0-15.0) 10/09/17 10:00 INR 0.98 (0.83-1.16) 10/09/17 10:00 Physical Exam - Physical Exam Respiratory: lungs clear Cardiac/Chest: regular rate, rhythm, No edema, No JVD ICD10 Worksheet Patient Problems: Problems Problem Status Onset Elevated troponin Acute Seizure Acute
--- NOTE | 2017-10-10 10:05 | GCON ---
[f rep st] CONSULTATION NEUROLOGIC CONSULTATION REFERRING PHYSICIAN: Zhang June MD HISTORY: The patient is a 77-year-old woman whom I am asked to see in neurologic consultation for mejia spected seizure. She had an episode yesterday when she was in her trailer, parked at her son's house . The patient's witnessed the event. She was sitting having breakfast and apparently starte d to feel different, and she knew something was not right, and she started to have shaking and lifted up a piece of toast, and then apparently had temporary loss of consciousness, bit her tongue. Eyes were rolled back. The rescue squad came, and she was noted to have some left-sided weakness, and a s troke alert was activated, but when she got to the emergency room, symptoms were already basically re solved. Workup was negative for obvious stroke and no large vessel occlusion. However, she was foun d to have a right frontal vascular malformation. There was no acute hemorrhage. She was started on Keppra for a suspected seizure and has had a good recovery. Her son says that her speech may still b e just slightly slurred, but no other persistent problems. She has never had this acute seizure phen omena in the past, but apparently has had some syncope. Some number of years ago, she had brain imag ing, but we do not have that available. She normally lives in [place] and is simply visiting for a f ew weeks. She had a neurosurgery consultation, and she is not felt to be in need of acute neurosurgi breanna intervention but should see Dr. Miguel as an outpatient in a few weeks. Cardiology is doing a lit tle workup for some fluctuating elevations of troponin, but she is not thought to probably have a nelida nirav cardiac issue. PAST MEDICAL HISTORY: Negative for any known seizure. She does have peripheral neuropathy from chem otherapy associated with treatment of multiple myeloma. ALLERGIES: No family history of seizure. No smoking. Rare consumption of alcohol. MEDICATIONS: She is currently on Keppra 750 mg twice daily. ALLERGIES: No known drug allergies. PHYSICAL EXAM: VITAL SIGNS: Blood pressure is 122/59, pulse of 84, respirations 14. Temperature is 36.9. GENERAL: She is well developed, no acute distress. EYES: Clear. NECK: Supple, with no br uits or masses. CARDIAC: Regular rate and rhythm, with no murmur. NEUROLOGIC: She is awake, alert , attentive, with very mild dysarthric speech, but able to communicate effectively. Pupils 3 mm and reactive. Extraocular movements are intact. Normal facial sensation and strength. Motor exam: Norm al muscle bulk and tone, 5/5 strength and no abnormal movements. Reflexes 1+. IMPRESSION: Today's total unit time was 50 minutes. The patient had most certainly a partial seizur e with secondary generalization related to a right frontal arteriovenous malformation, with no eviden ce of acute hemorrhage. I would agree with continuing Keppra and would continue that indefinitely. She can have a followup with Neurosurgery in a few weeks to talk about all the strategies for managin g arteriovenous malformation, but she probably would just be monitored. She was told she should foll ow up with a neurologist in the [place] area, but they were given my contact for any issues that migh t arise in the next few weeks while she is still in the area. She is not to drive for 3 months, and then follow whatever the laws are in [place] regarding seizure. /[id number]/MODL
[2017-10-10] MEDS ORDERED: REGADENOSON 0.4 MG/5 ML SYR IVP ONE (11:05)
[2017-10-10] MEDS ORDERED: ATROPINE SULFATE 1 MG/10 ML SYR ONE (11:48)
--- NOTE | 2017-10-10 12:06 | HOSPPROG ---
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 Keppra indefinitely #NSTEMI: Lexiscan today; had 10-12 sec heart block during Lexiscan injection, EKG normal after. Imaging pending -may warrant cath. Spoke with NSGY team. There is no active AVM bleeding, but there is a risk with dual-antiplatelet therapy -BB #AMV: FU with Dr. Miguel in 2 weeks #Multiple myeloma: #Diet: NPO for procedure #DVT ppx: SCDs #Disp: inpatient admission for stress testing, possible cath Subjective: no CP or SOB Objective: Vital Signs Temp Pulse Resp BP Pulse Ox 36.9 C 72 16 126/57 H 95 10/10/17 11:12 10/10/17 11:12 10/10/17 11:12 10/10/17 11:12 10/10/17 11:12 Laboratory Results 10/10/17 03:18 10/09/17 10/10/17 10/11/17 05:59 05:59 05:59 Intake Total 1400 Output Total 726 200 Balance 674 -200 PT 13.2 SEC (12.0-15.0) 10/09/17 10:00 INR 0.98 (0.83-1.16) 10/09/17 10:00 - Time Spent With Patient Time Spent with Patient: greater than 35 minutes Time Spent with Patient: Greater than 35 minutes spent on this patients care, greater than 50% of time spent counseling, educating, and coordinating care regarding the above mentioned plan. - Physical Exam Constitutional: no apparent distress Eyes: PERRL Ears, Nose, Mouth, Throat: moist mucous membranes, hearing normal Cardiovascular: regular rate and rhythym, no murmur, rub, or gallop, No edema Respiratory: no respiratory distress Gastrointestinal: normoactive bowel sounds Genitourinary: no bladder fullness Skin: warm Musculoskeletal: full muscle strength Neurologic: AAOx3, CN II-XII Intact ICD10 Worksheet Patient Problems: Problems Problem Status Onset Elevated troponin Acute Seizure Acute
--- NOTE | 2017-10-10 12:31 | CPR ---
[f rep st] NONINVASIVE CARDIAC PROCEDURE REPORT PROCEDURE: Lexiscan injection and Lexiscan MPI study. SUPERVISING FLOORING GRADER: Dr. Rafal Cruz. INDICATION FOR PROCEDURE: Shortness of breath, elevated troponin level, wall motion abnormality on e chocardiogram. PRE: After obtaining informed consent, ensuring patient n.p.o. status of caffeine for greater than 1 2 hours, the patient was placed on electrocardiogram. Initial EKG shows sinus rhythm, normal axis, w ith mild biphasic T waves in V2, no other significant ST or T-wave abnormalities. Initial blood pres sure was 121/61, saturating 97% on room air. Patient denies chest pain, shortness of breath, or symp toms suggesting of ischemia. INJECTION: Patient was given Lexiscan slow IV push followed by nuclear isotope. Initially, she was noted to have a mildly increased heart rate up to 88 beats per minute and blood pressure of 123/63. She did report shortness of breath, nausea, and flushed feeling but denying of any chest pain or pres sure. Within 2 minutes of injection, patient was noted to go into a second-degree heart block type 2 with significant rate dropped to 48 beats per minute, and within a few seconds later converted into a complete heart block with junctional escape rhythm at a rate of 38 beats per minute. She did becom e significantly nauseous within a few seconds and returned back into sinus rhythm, the entire time re porting no chest pain. Total time in second and third-degree heart block approximately 10-12 seconds. The patient was given caffeinated beverage, which did help subdue symptoms. Finally within 5 minutes she returned back to her baseline. Her EKG returned back to normal, back to baseline, remaining in sinus rhythm, final b lood pressure of 140/80. Currently, her vital signs are stable. She is maintaining sinus rhythm. S he will be taken down to Nuclear Medicine for post-stress imaging. /[id number]/MODL
--- NOTE | 2017-10-10 14:19 | ASMTCMCOM ---
CM Note CM Note Notes: Pt moved to PCU for elevated tropinins. PT/OT evals are still pending. CM will continue to follow. Date Signed: 10/10/2017 02:18 PM Electronically Signed By:ZOFIA Neri
--- NOTE | 2017-10-10 16:55 | PDMN ---
Medical Necessity Medical necessity: change to IP; los>2mn for sz r/t AVM, and NSTEMI, troponin 2.230 on 10/09, 10-12 sec heart block during Lexiscan injection; requires stress testing w/possible cath; hx multiple myeloma w/chemo; per order and progress note 10/10/17
[2017-10-11 03:52] LABS: INR 1.06 (0.83-1.16)
[2017-10-11] MEDS: METOPROLOL TARTRATE 25 MG TAB PO SCH ×2 (08:05→20:40)
[2017-10-11] MEDS: levETIRAcetam 250 MG TAB PO SCH ×2 (08:05→20:40)
--- NOTE | 2017-10-11 08:34 | SOAPPROG ---
SOAP Progress Note Assessment/Plan: Assessment:1. abn trops...spiked and are decreasing..pt asymptomatic and with normal rhythm..normal ekg ..echo with anterior hypokinesis... needs rest nuclear today 2. sz...avm with evidence of old bleed per neurosurgery...no evidenced of arrthymias over night..continue monitoring 3. h/o multiple mylemona..remote chemo and normal renal fxn Plan:1. await nuclear findings for further recs 10/10/17 09:20 10/11/17 08:33 Subjective: no c/o overnight ..no cp or arrthymias..trop decreasing to 0.4..rest nuc study today...?need for cath or not when these results noted Objective: Vital Signs Temp Pulse Resp BP Pulse Ox 36.9 C 69 16 134/58 H 95 10/11/17 08:00 10/11/17 08:00 10/11/17 08:00 10/11/17 08:00 10/11/17 08:00 Laboratory Results 10/11/17 03:18 10/11/17 03:18 10/10/17 10/11/17 10/12/17 05:59 05:59 05:59 Intake Total 1100 Output Total 1000 Balance 100 PT 14.0 SEC (12.0-15.0) 10/11/17 03:18 INR 1.06 (0.83-1.16) 10/11/17 03:18 Physical Exam - Physical Exam Respiratory: lungs clear Cardiac/Chest: normal peripheral pulses, regular rate, rhythm, No edema, No JVD ICD10 Worksheet Patient Problems: Problems Problem Status Onset Elevated troponin Acute Seizure Acute
[2017-10-11] MEDS: TIMOLOL 0.5% 15 ML OPHT.BTL LEFTEYE SCH ×2 (08:56→20:44)
--- NOTE | 2017-10-11 12:54 | HOSPPROG ---
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 Keppra indefinitely #NSTEMI: awaiting rest nuclear images today to determine of cath needed -may warrant cath. Spoke with NSGY team. There is no active AVM bleeding, but there is a risk with dual-antiplatelet therapy -BB #AMV: FU with Dr. Miguel in 2 weeks #Multiple myeloma: FU oncology #Diet: NPO for procedure #DVT ppx: SCDs #Disp: inpatient admission for stress testing, possible cath Subjective: no CP or SOB Objective: Vital Signs Temp Pulse Resp BP Pulse Ox 36.9 C 69 16 134/58 H 95 10/11/17 08:00 10/11/17 08:00 10/11/17 08:00 10/11/17 08:00 10/11/17 08:00 Laboratory Results 10/11/17 03:18 10/11/17 03:18 10/10/17 10/11/17 10/12/17 05:59 05:59 05:59 Intake Total 1100 Output Total 1000 Balance 100 PT 14.0 SEC (12.0-15.0) 10/11/17 03:18 INR 1.06 (0.83-1.16) 10/11/17 03:18 - Physical Exam Constitutional: no apparent distress Eyes: PERRL Ears, Nose, Mouth, Throat: moist mucous membranes Cardiovascular: regular rate and rhythym, No edema Respiratory: no respiratory distress Gastrointestinal: normoactive bowel sounds Genitourinary: no bladder fullness Skin: warm Musculoskeletal: full muscle strength Neurologic: AAOx3, CN II-XII Intact Psychiatric: interacting appropriately ICD10 Worksheet Patient Problems: Problems Problem Status Onset Elevated troponin Acute Seizure Acute
[2017-10-11] MEDS: ASPIRIN EC 81 MG TAB PO SCH (14:35)
[2017-10-12] MEDS: ASPIRIN EC 81 MG TAB PO SCH (09:41)
[2017-10-12] MEDS: METOPROLOL TARTRATE 25 MG TAB PO SCH ×2 (09:42→19:43)
[2017-10-12] MEDS: levETIRAcetam 250 MG TAB PO SCH ×2 (09:42→19:44)
[2017-10-12] MEDS: TIMOLOL 0.5% 15 ML OPHT.BTL LEFTEYE SCH ×2 (09:45→19:45)
--- NOTE | 2017-10-12 09:46 | PDPROPOC ---
Sedation Plan of Care Sedation Plan of Care: vital signs stable, mental status noted, patient educated of risks, benefits, alternatives, patient can tolerate sedation ASA Classification: ASA 2 Planned drugs: fentanyl, midazolam Mallampati Score: Class 1 Mallampati Reference Image: Patient passed 3-3-2 rule?: Yes
--- NOTE | 2017-10-12 09:46 | PDHPUP ---
History & Physical Update H&P update statement: This history and physical update is based on an assessment of the patient which was completed after admission or registration (within 24 hours), but prior to the surgery/procedure. H&P update: H&P reviewed & patient examined (radial artery approach. ), no change in patient's condition since H&P completed
[2017-10-12] MEDS ORDERED: ASPIRIN EC 325 MG TAB PO ONE (10:37)
[2017-10-12] MEDS ORDERED: DIAZEPAM 5 MG TAB PO ONE (10:37)
[2017-10-12] MEDS ORDERED: diphenhydrAMINE 25 MG CAP PO ONE (10:37)
[2017-10-12] MEDS ORDERED: NS 1,000 ML IV ONE (10:37)
[2017-10-12] MEDS ORDERED: FAMOTIDINE 20 MG TAB PO ONE (10:37)
[2017-10-12] MEDS ORDERED: LIDOCAINE 1% 300 MG/30 ML SDV ONE (13:47)
[2017-10-12] MEDS ORDERED: IOPAMIDOL (ISOVUE-370) 150 ML BTL IV ONE (13:47)
[2017-10-12] MEDS ORDERED: fentaNYL 100 MCG/2 ML INJ ONE (13:47)
[2017-10-12] MEDS ORDERED: VERAPAMIL 5 MG/2 ML VIAL ONE (13:47)
[2017-10-12] MEDS ORDERED: HEPARIN 10,000 UNIT/10 ML MDV (1,000 UNIT/ML) ONE (13:47)
[2017-10-12] MEDS ORDERED: MIDAZOLAM 2 MG/2 ML VIAL ONE (13:47)
--- NOTE | 2017-10-12 15:13 | PDDXCAT ---
Diagnostic Cath Note - . Date: 10/12/17 Weight And Balance Control Agent: Dexter High-risk criteria on non-invasive testing: stress-induced moderate-size multiple perfusion defects - Procedure Access: right wrist Procedure: left heart catheterization, coronary angiography, left ventriculogram - Materials Left Heart Cath size: 5F Left Heart Cath materials: pigtail, other ([place]) - Findings-Left Heart Catheterization LM: Normal LAD: Normal LCX: Normal RCA: Dominant: Normal EDP: 9 mm of mercury LVEF: 65 Wall motion: Normal Complications: None Estimated blood loss: <50ml Closure method: TR Band Assessment: Angiographically normal coronary arteries. Normal left ventricular systolic function Patient Problems: Problems Problem Status Onset Seizure Acute Elevated troponin Acute
[2017-10-12 19:41] VITALS: BP 151/59
--- NOTE | 2017-10-12 20:44 | GDS ---
[f rep st] DISCHARGE SUMMARY DISCHARGE DIAGNOSES: 1. Seizure, secondary to arteriovenous malformation. 2. Non-ST segment elevation myocardial infarction with negative cardiac cath. 3. Multiple myeloma. HISTORY OF PRESENT ILLNESS: A 77-year-old female here visiting her son from [place] with multiple myeloma, peripheral neuropathy, presenting with seizure- like activity. She abruptly raised her arm in the air, her eyes rolled back, and began to shake all over. She had a CT-A showing an AVM. Troponin was elevated to 0.3. Denies chest pain, shortness of breath, dizziness, or lightheadedness. HOSPITAL COURSE: 1. Seizure, secondary to AVM: She was evaluated by Neurosurgery. No evidence of bleeding. No need for intervention. Will need repeat imaging. Continue Keppra indefinitely. No driving for 3 months. She should establish care with a neurologist in [place]. 2. Type 2 OR: Demand with acute seizure. Troponin was elevated to 0.3. Lexiscan showed large anterior septal perfusion defect partially reversible concerning suggesting ischemia. She underwent cardiac catheterization with normal coronaries. We will continue beta farrah. Lipids at goal. 3. Hypertension. Blood pressures have remained greater than 150s here. We will add low-dose lisinopril. She will need a followup BMP to assess kidney function. Consider Norvasc, but she already has issues with edema so did not want this medication. 4. Problem multiple myeloma. Follow up with her oncologist at home. DIET: Recommend cardiac low fat, low salt diet. DISPOSITION: Patient is stable for discharge home. FOLLOWUP: 1. Primary oncologist. 2. Establish care with a neurologist. 3. BMP for kidney function. 4. Followup blood pressure, may need up titration of medication. PHYSICAL EXAMINATION: VITAL SIGNS: Today: Temperature 36.7, blood pressure 158/64, heart rate in the 80s, respiration 20, 99% on room air. GENERAL: She is smiling, eating, in no acute distress. HEENT: PERRLA. Moist mucous membranes. CV: Regular rate and rhythm. LUNGS: Clear. ABDOMEN: Soft, nontender, and nondistended with positive bowel sounds. : No Anderson. MUSCULOSKELETAL: Right wrist cath site without hematoma. Good pulse. NEURO: 2 through 12 intact. PSYCH: Alert and oriented x3. Time spent on discharge greater than 30 minute counseling patient and on new medicationsand followup plan. /[id number]/MODL MTDD
== END 2017-10-12 21:00 | disposition home or self-care (01) | DRG 91 ==
LOC: F3N 12:25 → F2W 18:40 → OBSVTOIN 10-10 12:09
PROVIDERS: ADMIT Internal Medicine; ATTEND Internal Medicine
PROC: 4A023N7 Measurement of Cardiac Sampling and Pressure, Left Heart, Percutaneous Approach (ICD-10-PCS; principal; 2017-10-12)
PROC: B2151ZZ Fluoroscopy of Left Heart using Low Osmolar Contrast (ICD-10-PCS; principal; 2017-10-12)
PROC: B2111ZZ Fluoroscopy of Multiple Coronary Arteries using Low Osmolar Contrast (ICD-10-PCS; principal; 2017-10-12)
DX: Q28.2 Arteriovenous malformation of cerebral vessels (principal); I21.A1 Myocardial infarction type 2; C90.00 Multiple myeloma not having achieved remission; G62.0 Drug-induced polyneuropathy; T45.1X5A Adverse effect of antineoplastic and immunosuppressive drugs, initial encounter; I10 Essential (primary) hypertension; Z96.651 Presence of right artificial knee joint
CPT/HCPCS: 82565-PO; 84484-PO; 97161-GP; 97165-GO; 97535-GO; A9500; A9585; C1769; G0378; G8978-GP-CH; G8979-GP-CH; G8980-GP-CH; G8987-GO-CI; G8988-GO-CI; J0461; J1644; J2250; J2785; J3010; Q9957; Q9967